=== PATIENT | female | born 1995 | race Caucasian/White ===

== ENCOUNTER → 2017-02-02 | Outpatient (REF) | payer OTHER | LOC: M SFHCCAPE 13:35 | PROVIDERS: ATTEND Physician Assistant | DX: J02.9 Acute pharyngitis, unspecified (principal) ==

== ENCOUNTER → 2018-01-23 | Outpatient (CLI) | payer BC, OTHER, SELFPAY | LOC: M RAD 10:34 | DX: O30.009 Twin pregnancy, unspecified number of placenta and unspecified number of amniotic sacs, unspecified trimester (principal); Z3A.13 13 weeks gestation of pregnancy | CPT/HCPCS: 76801 ==

== ENCOUNTER → 2018-01-25 | Outpatient (CLI) | payer BC, OTHER ==
[2018-01-25 19:39] LABS: BASO % 0.2 % (0.0-1.0); EOS # 0.1 10^3/uL (0.0-0.50); EOS % 0.4 % (0.0-3.0); HEMATOCRIT 40.2 % (36.0-47.0); HEMOGLOBIN 13.2 g/dl (12.0-15.5); IMMATURE GRANULOCYTE % 0.4 % (0-3.0); LYMPH % 12.1 % (24.0-44.0); MEAN CORPUSCULAR HEMOGLOBIN 27.9 pg (27.0-33.0); MEAN CORPUSCULAR HGB CONC 32.8 g/dl (32.0-36.5); MONO # 0.9 10^3/uL (0.0-0.8); MONO % 5.5 % (0.0-5.0); NEUTROPHILS # 13.2 10^3/uL (1.8-7.7); NEUTROPHILS % 81.4 % (36.0-66.0); PLATELET COUNT, AUTOMATED 314 10^3/uL (150-450); RED BLOOD COUNT 4.73 10^6/uL (4.00-5.40); RED CELL DISTRIBUTION WIDTH 15.4 % (11.5-14.5); WHITE BLOOD COUNT 16.2 10^3/uL (4.0-10.0)
[2018-01-25 21:25] LABS: CHLAMYDIA DNA AMPLIFICATION POSITIVE (NEGATIVE); GC DNA AMPLIFICATION NEGATIVE (NEGATIVE)
[2018-01-27 10:24] LABS: HBsAg Prenatal NEGATIVE (NEGATIVE); HIV 1&2 SCREEN CENTAUR NEGATIVE (NEGATIVE); RUBELLA IgG QUALITATIVE IMMUNE (IMMUNE)
[2018-01-27 10:24] LABS: HEPATITIS C VIRUS ABY INDEX 0.1 INDEX (<0.8)
== END ==
LOC: M WUC 16:16
DX: O30.009 Twin pregnancy, unspecified number of placenta and unspecified number of amniotic sacs, unspecified trimester (principal); Z3A.01 Less than 8 weeks gestation of pregnancy
CPT/HCPCS: 86762

== ENCOUNTER 2018-02-20 18:52 | Emergency (ER) | payer BC, OTHER ==
[2018-02-20] MEDS: NS 1,000 ML IV (19:15)
[2018-02-20 20:07] LABS: BASO % 0.1 % (0.0-1.0); EOS % 0.1 % (0.0-3.0); HEMATOCRIT 37.1 % (36.0-47.0); HEMOGLOBIN 12.7 g/dl (12.0-15.5); IMMATURE GRANULOCYTE % 0.5 % (0-3.0); LYMPH # 0.9 10^3/uL (1.5-6.5); MEAN CORPUSCULAR HEMOGLOBIN 29.1 pg (27.0-33.0); MEAN CORPUSCULAR HGB CONC 34.2 g/dl (32.0-36.5); MEAN CORPUSCULAR VOLUME 84.9 fl (80.0-96.0); MONO # 0.5 10^3/uL (0.0-0.8); MONO % 3.7 % (0.0-5.0); NEUTROPHILS # 13.2 10^3/uL (1.8-7.7); NEUTROPHILS % 89.6 % (36.0-66.0); PLATELET COUNT, AUTOMATED 290 10^3/uL (150-450); RED BLOOD COUNT 4.37 10^6/uL (4.00-5.40); RED CELL DISTRIBUTION WIDTH 15.2 % (11.5-14.5); WHITE BLOOD COUNT 14.7 10^3/uL (4.0-10.0)
[2018-02-20] MEDS: METOCLOPRAMIDE INJ 10MG/2ML VIAL (J2765) IV (20:09)
[2018-02-20 20:11] LABS: AMORPHOUS SEDIMENT RFX SMALL (NEGATIVE); KETONE, URINE AUTO RFX 2+ mg/dL (NEGATIVE); LEUKOCYTE ESTERASE UR AUTO RFX 1+ (NEGATIVE); MUCUS, URINE RFX MODERATE (NEGATIVE); NITRITE, URINE AUTO RFX NEGATIVE (NEGATIVE); RBC, URINE AUTO RFX 4 /HPF (0-3); SPECIFIC GRAVITY UR AUTO RFX 1.024 (1.002-1.035); SQUAM EPITHELIAL CELL UR AURFX 8 /HPF (0-6); WBC, URINE AUTO RFX 24 /HPF (0-3)
[2018-02-20 20:37] LABS: LACTIC ACID SEPSIS PROTOCOL 0.8 MMOL/L (0.4-2.0)
[2018-02-20 20:56] LABS: ALBUMIN 3.3 GM/DL (3.2-5.2); ALBUMIN/GLOBULIN RATIO 0.83 (1.00-1.93); ALKALINE PHOSPHATASE 56 U/L (45-117); ALT/SGPT 11 U/L (12-78); ANION GAP 9 MEQ/L (8-16); AST/SGOT 13 U/L (7-37); BILIRUBIN,DIRECT < 0.1 MG/DL (0.0-0.2); BILIRUBIN,TOTAL 0.3 MG/DL (0.2-1.0); BLOOD UREA NITROGEN 6 MG/DL (7-18); CALCIUM LEVEL 8.7 MG/DL (8.5-10.1); CARBON DIOXIDE LEVEL 24 MEQ/L (21-32); CHLORIDE LEVEL 104 MEQ/L (98-107); CREATININE FOR GFR 0.52 MG/DL (0.55-1.30); GLOMERULAR FILTRATION RATE > 60.0 (>60); GLUCOSE, FASTING 82 MG/DL (70-100); HCG, SERUM QUANTITATIVE 23171 MIU/ML; LIPASE 169 U/L (73-393); POTASSIUM SERUM 3.7 MEQ/L (3.5-5.1); SODIUM LEVEL 137 MEQ/L (136-145); TOTAL PROTEIN 7.3 GM/DL (6.4-8.2)
== END 2018-02-20 21:48 | disposition home or self-care (01) ==
LOC: M ED 18:52
DX: O21.0 Mild hyperemesis gravidarum (principal); O23.32 Infections of other parts of urinary tract in pregnancy, second trimester; Z3A.16 16 weeks gestation of pregnancy
CPT/HCPCS: J2765

== ENCOUNTER → 2018-03-02 | Outpatient (CLI) | payer BC, OTHER ==
[~2018-03-02] MED LIST: MACR100C43 PO; PRENMIS3 PO; PROM12.56 PO; ZOFR4TAB14 PO
--- NOTE | 2018-03-03 03:26 | REP ---
Clinical: Anatomical evaluation twin gestation . Comparison: 01/23/2018 . Findings: Examination demonstrates diamniotic twin gestation. Cervix measures 3.1 cm in length and appears closed. Concordant growth is noted. Gestational age by LMP at 18 weeks 0 days with estimated date of delivery 08/03/2018 . TWIN A: Twin A identified in cephalic presentation along the maternal right side. Placenta is noted posterior and grade grade zero without evidence for placenta previa or abruption. motion is appreciated. Amniotic fluid volume is normal and the deepest pocket measures 3.9 cm. FHR equals 144 beats per minute. BPD 3.9 cm 17 weeks 6-day HC 14.8 cm 18 weeks 0 days AC 12.8 cm 18 weeks 2 days FL 2.9 cm 18 weeks 6-day HL 2.9 cm 19 weeks 3 days HC/AC ratio 1.16 Gestational age by current measurements: 18 weeks 4 days . Estimated weight 244 grams ( 60th percentile). Anatomical assessment demonstrates normal cranium, cord plexus, cavum, posterior fossa/cerebellum, face, lungs, four-chamber heart/ventricular outflow tracts, diaphragm, stomach, cord insertion and three-vessel cord, kidneys/bladder, spine and extremities. ------- TWIN B: Twin B identified in breech presentation along the maternal left side. Placenta is noted posterior and grade grade zero without evidence for placenta previa or abruption. motion is appreciated. Amniotic fluid volume is normal and the deepest pocket measures 3.6 cm. FHR equals 132 beats per minute. BPD 4.1 cm 18 weeks 2 days HC 14.7 cm 17 weeks 6 days AC 13.1 cm 18 weeks 4 days FL 2.7 cm 18 weeks 1 day HL 2.7 cm 18 weeks 5 days HC/AC ratio 1.13 Gestational age by current measurements: 18 weeks 1 day . Estimated weight 236 grams ( 61st percentile). Anatomical assessment demonstrates normal cranium, cord plexus, cavum, posterior fossa/cerebellum, lungs, diaphragm, stomach, cord insertion and three-vessel cord, kidneys/bladder, spine and extremities. Impression: Diamniotic twin gestation demonstrating appropriate concordant growth. No gross abnormalities are identified. Anatomical assessment for twin A is complete and normal. Anatomical assessment for twin B limited in evaluation of the facial features and heart/ventricular outflow tracts. Electronically Signed by John Toth MD 03/03/2018 03:17 A
== END ==
LOC: M RAD 15:41
PROVIDERS: ATTEND Advanced Practice Midwife
DX: O30.001 Twin pregnancy, unspecified number of placenta and unspecified number of amniotic sacs, first trimester (principal); Z3A.18 18 weeks gestation of pregnancy

== ENCOUNTER → 2018-03-09 | Outpatient (REF) | payer BC, OTHER ==
[2018-03-09 18:57] LABS: CHLAMYDIA DNA AMPLIFICATION NEGATIVE (NEGATIVE); GC DNA AMPLIFICATION NEGATIVE (NEGATIVE)
== END ==
LOC: M LAB REF 16:37
PROVIDERS: ATTEND Obstetrics & Gynecology
DX: O30.002 Twin pregnancy, unspecified number of placenta and unspecified number of amniotic sacs, second trimester (principal)

== ENCOUNTER → 2018-03-22 | Outpatient (REF) | payer OTHER | LOC: M LAB REF 13:07 | PROVIDERS: ATTEND Obstetrics & Gynecology | DX: O30.032 Twin pregnancy, monochorionic/diamniotic, second trimester (principal) ==

== ENCOUNTER → 2018-03-30 | Outpatient (CLI) | payer BC, OTHER ==
--- NOTE | 2018-03-31 02:57 | REP ---
Clinical: Twin gestation. Follow-up Comparison: 03/02/2018 . Findings: Examination demonstrates diamniotic monochorionic twin gestation. Cervix measures 3.8 cm cm in length and appears closed. Placenta is posterior and grade zero without evidence for placenta previa or abruption. Concordant growth is noted. Gestational age by LMP at 22 weeks 0 days with estimated date of delivery 08/03/2018 . TWIN A: Twin A identified in cephalic presentation along the maternal midline side. motion is appreciated. Amniotic fluid volume is normal and the deepest pocket measures 4.4 cm. FHR equals 150 beats per minute. Estimated weight 512 grams ( 63rd percentile). Limited anatomical assessment demonstrates normal structures without anatomical abnormality. Current examination poorly evaluates heart/ventricular outflow tracts to prior examination demonstrated normal appearance. ------- TWIN B: Twin B identified in breech presentation along the maternal right side. motion is appreciated. Amniotic fluid volume is normal and the deepest pocket measures 4.7 cm. FHR equals 141 beats per minute. Estimated weight 511 grams ( 63rd percentile). Limited anatomical assessment demonstrates normal structures with the exception of the heart and ventricular outflow tracts which are again incompletely evaluated due to positioning. Impression: Diamniotic monochorionic twin gestation demonstrating appropriate concordant growth. No gross abnormalities are identified. However, limited evaluation of the twin B cardiac ventricular outflow tracts again noted. Electronically Signed by John Toth MD 03/31/2018 02:48 A
== END ==
LOC: M RAD 17:01
PROVIDERS: ATTEND Obstetrics & Gynecology
DX: O30.032 Twin pregnancy, monochorionic/diamniotic, second trimester (principal); Z3A.22 22 weeks gestation of pregnancy; O32.1XX2 Maternal care for breech presentation, fetus 2

== ENCOUNTER 2018-04-18 16:23 | Outpatient (CLI) | payer BC, OTHER ==
[~2018-04-18] VITALS: Ht 162.6 cm; Wt 106.8 kg
[2018-04-18 17:00] VITALS: BP 122/75
--- NOTE | 2018-04-18 19:57 | NUR ---
PERIPHERAL VASCULAR TECH triage note 22-year-old G1, P0 at 24+5 weeks gestation. She has a mono/di twin gestation. She presented to labor and delivery triage after experiencing a slip and fall. She's had some mild lower abdominal pain, which preceded the fall. She denies any vaginal bleeding, loss of fluid. She reports regular movement of both twins. Normotensive, normal heart rate, afebrile Abdomen soft, nontender, nondistended, uterine fundus, nontender EFM: Reactive for EGA, moderate variability, no decelerations, and normal baseline for both twins [place]: No evidence of uterine contractions A/P 22-year-old at 24+5 weeks with mono/di twins. Reassuring status 2 and reassuring maternal status after a slip and fall incident low-impact. -Second trimester precautions reviewed -Patient has a follow-up appointment tomorrow. Delbert Kelley DO
== END 2018-04-18 19:54 | disposition home or self-care (01) ==
LOC: M LDO 16:23
PROVIDERS: ATTEND Obstetrics & Gynecology
DX: Z04.3 Encounter for examination and observation following other accident (principal); O30.032 Twin pregnancy, monochorionic/diamniotic, second trimester; O26.892 Other specified pregnancy related conditions, second trimester; R10.30 Lower abdominal pain, unspecified; Z3A.24 24 weeks gestation of pregnancy
CPT/HCPCS: 59025; G0378; G0463

== ENCOUNTER → 2018-05-01 | Outpatient (CLI) | payer BC, OTHER ==
--- NOTE | 2018-05-02 08:36 | REP ---
Clinical: Twin gestation. Anatomical reevaluation. Comparison: 03/30/2018 . Findings: Examination demonstrates diamniotic monochorionic twin gestation. Cervix measures 4.8 cm in length and appears closed. Concordant growth is noted. Gestational age by LMP at 26 weeks 4 days with estimated date of delivery 08/03/2018 . TWIN A: Twin A identified in cephalic presentation along the maternal left side. Placenta is noted posterior and grade grade 1 without evidence for placenta previa or abruption. motion is appreciated. Amniotic fluid volume is normal and the deepest pocket measures 1.82 cm. FHR equals 150 beats per minute. Gestational age by current measurements: 26 weeks 1 day . Estimated weight 855 grams ( 23rd percentile). Limited anatomical assessment without obvious abnormality. ------- TWIN B: Twin B identified in cephalic presentation along the maternal right side. Placenta is noted posterior and grade grade 1 without evidence for placenta previa or abruption. motion is appreciated. Amniotic fluid volume is normal and the deepest pocket measures 2.43 cm. FHR equals 150 beats per minute. Gestational age by current measurements: 26 weeks 3 days . Estimated weight 948 grams ( 40th percentile). Limited anatomical assessment without obvious abnormality. Current examination demonstrates normal appearing cardiac ventricular outflow tracts. Impression: 1. Diamniotic monochorionic twin gestation demonstrating appropriate concordant growth. No gross abnormalities are identified. 2. Previous incomplete evaluation of the twin B cardiac ventricular outflow tracts are identified on current examination and appear normal. Electronically Signed by John Toth MD 05/02/2018 08:27 A
== END ==
LOC: M RAD 15:13
PROVIDERS: ATTEND Specialist
DX: O30.032 Twin pregnancy, monochorionic/diamniotic, second trimester (principal); Z3A.26 26 weeks gestation of pregnancy

== ENCOUNTER → 2018-05-04 | Outpatient (CLI) | payer BC, OTHER ==
[2018-05-04 16:04] LABS: BASO % 0.2 % (0.0-1.0); EOS % 0.2 % (0.0-3.0); HEMATOCRIT 33.8 % (36.0-47.0); HEMOGLOBIN 11.4 g/dl (12.0-15.5); LYMPH # 1.3 10^3/uL (1.5-6.5); LYMPH % 7.5 % (24.0-44.0); MEAN CORPUSCULAR HEMOGLOBIN 30.6 pg (27.0-33.0); MEAN CORPUSCULAR HGB CONC 33.7 g/dl (32.0-36.5); MEAN CORPUSCULAR VOLUME 90.6 fl (80.0-96.0); MONO # 0.8 10^3/uL (0.0-0.8); MONO % 4.6 % (0.0-5.0); NEUTROPHILS # 15.4 10^3/uL (1.8-7.7); NEUTROPHILS % 86.8 % (36.0-66.0); PLATELET COUNT, AUTOMATED 285 10^3/uL (150-450); RED BLOOD COUNT 3.73 10^6/uL (4.00-5.40); WHITE BLOOD COUNT 17.7 10^3/uL (4.0-10.0)
== END ==
LOC: M LAB 14:25
PROVIDERS: ATTEND Specialist
DX: O30.032 Twin pregnancy, monochorionic/diamniotic, second trimester (principal)

== ENCOUNTER → 2018-05-24 | Outpatient (CLI) | payer BC, OTHER ==
--- NOTE | 2018-05-24 18:15 | REP ---
Clinical: Twin gestation. Anatomical evaluation Comparison: 05/01/2018 . Findings: Examination demonstrates diamniotic monochorionic twin gestation. Cervix measures 4.5 cm cm in length and appears closed. Concordant growth is noted. Gestational age by LMP at 29 weeks 6 days with estimated date of delivery 08/03/2018 . TWIN A: Twin A identified in cephalic presentation along the maternal midline side. Placenta is noted the posterior and grade II without evidence for placenta previa or abruption. motion is appreciated. Amniotic fluid volume is normal and the deepest pocket measures 5.6 cm. FHR equals 150 beats per minute. The Gestational age by current measurements: 29 weeks 5 days . Estimated weight 1356 grams ( 27th percentile). Limited anatomical assessment unremarkable. ------- TWIN B: Twin B identified in breech presentation along the maternal right side. Placenta is noted posterior and grade II without evidence for placenta previa or abruption. motion is appreciated. Amniotic fluid volume is normal and the deepest pocket measures 5.4 cm. FHR equals 160 beats per minute. Gestational age by current measurements: 30 weeks 5 days . Estimated weight 1773 grams ( 78th percentile). Limited anatomical assessment without obvious abnormality. Impression: Diamniotic monochorionic twin gestation demonstrating 24% discordant growth. No gross abnormalities are identified. Electronically Signed by John Toth MD 05/24/2018 06:07 P
== END ==
LOC: M RAD 15:52
PROVIDERS: ATTEND Specialist
DX: O30.033 Twin pregnancy, monochorionic/diamniotic, third trimester (principal); Z3A.29 29 weeks gestation of pregnancy; Z3A.30 30 weeks gestation of pregnancy

== ENCOUNTER → 2018-06-02 | Outpatient (CLI) | payer BC, OTHER ==
--- NOTE | 2018-06-02 19:16 | REP ---
LIMITED OB ULTRASOUND AND BIOPHYSICAL PROFILE TWIN GESTATION: Real-time sonographic evaluation of gravid uterus performed. There is a known diamniotic monochorionic twin gestation. Placenta posterior and grade 2 with no previa or abruption. Estimated gestational age 31 weeks 1 day, EDC 08/03/2018. FETUS A: heart rate 147 beats per minute. Amniotic fluid appears within normal limits, with deepest pocket of fluid 3.4 cm. Biophysical profile score 8/8. S/D ratio 3.01 and RI 0.67, within normal range. position is vertex on the maternal left side. FETUS B: heart rate 144 beats per minute. Amniotic fluid within normal limits with deepest pocket of fluid 3.1 cm. Biophysical profile score 8/8. position vertex on the maternal right side. Electronically Signed by Naman Mojica MD 06/02/2018 08:04 P
== END ==
LOC: M SMT 13:17
PROVIDERS: ATTEND Specialist
DX: O30.033 Twin pregnancy, monochorionic/diamniotic, third trimester (principal); Z3A.31 31 weeks gestation of pregnancy

== ENCOUNTER 2018-06-08 20:04 | Outpatient (CLI) | payer BC, OTHER, MEDICAID ==
[~2018-06-08] VITALS: Ht 165.1 cm; Wt 105.9 kg
[~2018-06-08 20:04] MED LIST changes: -ZOFR4TAB16 PO
[2018-06-08 20:44] VITALS: BP 134/78
[2018-06-08 20:58] VITALS: BP 137/75
[2018-06-08] MEDS: BETAMETHASONE SOLUSPAN 6MG/ML INJ 5ML (J0702) IM SCH (21:15)
[2018-06-08] MEDS ORDERED: LACTATED RINGER'S 1000 ML IV STA (21:16)
[2018-06-08] MEDS ORDERED: LR 1,000 ML IV SCH (21:16)
[2018-06-08 22:10] VITALS: BP 139/92
[2018-06-08 23:14] VITALS: BP 115/68
[2018-06-09] VITALS (7 sets, daily range): BP systolic 134–147; BP diastolic 66–92
[2018-06-09] MEDS: ONDANSETRON 4MG/2ML VIAL (J2405) IV PRN ×3 (08:07→17:12)
--- NOTE | 2018-06-09 08:38 | HPE ---
DATE OF ADMISSION: 06/08/2018 HISTORY: 22-year-old G1, P0 female at 32 and 0/7s gestation by 7-week ultrasound with an estimated date of confinement (EDC) of 08/03/2018 with monochorionic, diamniotic twins, presents with cramping and contractions for the last several hours. Denies vaginal bleeding. Contractions are not severe. Every two hours then occur frequently and she notices them. She had an ultrasound for growth early in the day which shows a lag of growth of both twins with intrauterine growth restriction (IUGR) of twin A. There is also oligohydramnios of twin A and overall discordant. COURSE: The patient received care at 8 weeks gestation on 12/16/2017. First trimester blood pressure was 122/70. She was diagnosed with monochorionic, diamniotic twins at an early visit. She had a positive chlamydia culture early in that was treated successfully. Studies showed discordance of growth ultrasound at 29+ weeks gestation. She had mildly elevated blood pressure most recent visit. PAST MEDICAL HISTORY: Noncontributory. PAST SURGICAL HISTORY: None. ALLERGIES: None. SOCIAL HISTORY: Patient lives in [place]. She denies cigarettes, alcohol or drug use. FAMILY HISTORY: Noncontributory. PHYSICAL EXAMINATION: Vital Signs: Blood pressure 134/76, pulse 84. She is in no apparent distress. Head and neck exam normal. Lungs clear to auscultation. Heart regular rate and rhythm. ABDOMEN: Nontender. Gravid. heart tones. Category 1 times two contractions every 2-4 minutes, mild to palpation. Cervix is long, closed. Posterior speculum exam reveals no evidence of ruptured membranes. Extremities: Nontender. LABS: Blood type A positive, rubella immune, RPR nonreactive. Hepatitis B and C negative, HIV negative. ASSESSMENT: 22-year-old at G1 at 32 and 0/7s weeks gestation by 7-week ultrasound, monochorionic, diamniotic twins presents with IUGR of twin A as well as overall less than expected growth of both twins and oligohydramnios of twin A. She has contractions with no evidence of labor. PLAN: Admit for monitoring and IV fluids. Will administer first course or betamethasone tonight for lung maturity. Plan to observe patient overnight.
--- NOTE | 2018-06-09 10:10 | IPNPDOC ---
Text Note Date of Service The patient was seen on 06/09/18. NOTE Pt has been out of bed to shower. Returned to bed complaining of increased UC, breathing heavily. Denies bleeding or LOF SVE soft, closed, posterior, no presenting part in pelvis Will resume hydration and reassess NST's pending VS,Fishbone, I+O VS, Fishbone, I+O Vital Signs Date Time Temp Pulse Resp B/P (MAP) Pulse Ox O2 Delivery O2 Flow Rate FiO2 06/09/18 07:11 98.9 110 16 141/66 (91) Emperatriz Crews CNM Jun 09, 2018 10:10
[2018-06-09] MEDS: BETAMETHASONE SOLUSPAN 6MG/ML INJ 5ML (J0702) IM SCH (19:17)
--- NOTE | 2018-06-09 19:20 | IPNPDOC ---
Text Note Date of Service The patient was seen on 06/09/18. NOTE Pt is reassured by status and plan for section 06/22. She verbalized understanding of f/u appt with Dr Mendosa Tuesday and repeat BPP this next week. Cat I tracings x2 without reports of UC, nothing on monitor Betamethasone injection #2 given Discharged home. Rec rest and increased hydration After hours access, PTL, daily FKC, wanrings reviewed VS,Fishbone, I+O VS, Fishbone, I+O Vital Signs Date Time Temp Pulse Resp B/P (MAP) Pulse Ox O2 Delivery O2 Flow Rate FiO2 06/09/18 15:00 99.0 118 18 147/81 (103) Emperatriz Crews CNM Jun 09, 2018 19:20
[2018-06-14] MEDS ORDERED: ZOFR4TAB16 PO (11:52)
== END 2018-06-09 19:36 | disposition home or self-care (01) ==
LOC: M LDO 20:04
PROVIDERS: ATTEND Specialist
DX: O30.033 Twin pregnancy, monochorionic/diamniotic, third trimester (principal); O26.843 Uterine size-date discrepancy, third trimester; O26.893 Other specified pregnancy related conditions, third trimester; R10.30 Lower abdominal pain, unspecified; O41.03X1 Oligohydramnios, third trimester, fetus 1; O47.03 False labor before 37 completed weeks of gestation, third trimester; Z3A.32 32 weeks gestation of pregnancy
CPT/HCPCS: 59025; 96360; 96361; 96372; 96374; G0378; G0463; J0702; J2405

== ENCOUNTER → 2018-06-08 | Outpatient (CLI) | payer BC, OTHER ==
[~2018-06-08] MED LIST changes: +ZOFR4TAB16 PO
[2018-06-08 18:23] LABS: ALT/SGPT 10 U/L (12-78); BILIRUBIN,TOTAL 0.4 MG/DL (0.2-1.0); CREATININE FOR GFR 0.61 MG/DL (0.55-1.30); GLOMERULAR FILTRATION RATE > 60.0 (>60); LDH LACTATE DEHYDROGENASE 219 U/L (84-246); URIC ACID 4.2 MG/DL (2.6-6.0)
[2018-06-08 18:32] LABS: TOTAL PROTEIN,RANDOM URINE 32.2 MG/DL (0.0-12.0)
[2018-06-08 19:07] LABS: HEMOGLOBIN 11.8 g/dl (12.0-15.5); MEAN CORPUSCULAR HEMOGLOBIN 28.2 pg (27.0-33.0); MEAN CORPUSCULAR HGB CONC 31.9 g/dl (32.0-36.5); MEAN CORPUSCULAR VOLUME 88.5 fl (80.0-96.0); PLATELET COUNT, AUTOMATED 299 10^3/uL (150-450); RED BLOOD COUNT 4.18 10^6/uL (4.00-5.40); WHITE BLOOD COUNT 21.8 10^3/uL (4.0-10.0)
== END ==
LOC: M SMT 15:26
PROVIDERS: ATTEND Obstetrics & Gynecology
DX: O16.3 Unspecified maternal hypertension, third trimester (principal); Z3A.00 Weeks of gestation of pregnancy not specified

== ENCOUNTER → 2018-06-08 | Outpatient (CLI) | payer MEDICAID ==
--- NOTE | 2018-06-08 20:23 | REP ---
Clinical: Twin gestation. well-being Comparison: 06/02/2018 . Findings: Examination demonstrates diamniotic monochorionic twin gestation. Cervix measures 3.2 cm in length and appears closed. Gestational age by LMP at 32 weeks 0 days with estimated date of delivery 08/03/2018 . TWIN A: Twin A identified in cephalic presentation along the maternal left side. Placenta is noted fundal and grade II without evidence for placenta previa or abruption. motion is appreciated. Amniotic fluid volume is significantly decreased and the deepest pocket measures 2.5 cm. FHR equals 153 beats per minute. BPD 7.7 cm 30 weeks 6 days HC 29.5 cm 32 weeks 4 days AC 25.6 cm 29 weeks 6 days (5%) FL 5.7 cm 30 weeks 0 days (7%) HL 5.3 cm 31 weeks 0 days HC/AC ratio 1.15 Gestational age by current measurements: 30 weeks 6 days . Estimated weight 1532 grams ( 9th percentile). Biophysical profile score: 8/8 Umbilical cord SD ratio : 3.00 ------- TWIN B: Twin B identified in transverse (head to maternal left) presentation along the maternal right side. Placenta is noted fundal and grade II without evidence for placenta previa or abruption. motion is appreciated. Amniotic fluid volume is normal and the deepest pocket measures 4.6 cm. FHR equals 157 beats per minute. BPD 7.0 cm 28 weeks 1 day (<5%) HC 27.6 cm 30 weeks 1 day AC 28.6 cm 32 weeks 4 days FL 6.0 cm 31 weeks 2 days HL 5.6 cm 32 weeks 3 days HC/AC ratio 0.97 Gestational age by current measurements: 31 weeks 0 days . Estimated weight 1791 grams ( 34th percentile). Biophysical profile score: 8/8 Umbilical cord SD ratio: 2.92 Impression: Diamniotic monochorionic twin gestation demonstrating less than expected discordant growth. Details as described above. Electronically Signed by John Toth MD 06/08/2018 08:14 P
== END ==
LOC: M RAD 16:00
PROVIDERS: ATTEND Specialist
DX: O30.033 Twin pregnancy, monochorionic/diamniotic, third trimester (principal); Z3A.30 30 weeks gestation of pregnancy

== ENCOUNTER → 2018-06-15 | Outpatient (CLI) | payer BC, OTHER, MEDICAID ==
[~2018-06-15] MED LIST changes: +ZOFR4TAB16 PO
--- NOTE | 2018-06-15 18:04 | REP ---
Clinical: Twin gestation. well-being. Comparison: 06/08/2018. Findings: Examination demonstrates advanced diamniotic monochorionic twin gestation. Cervix appears closed. Placenta is fundal and grade III without evidence for placenta previa or abruption. Gestational age by LMP at 33 weeks 0 days with estimated date of delivery 08/03/2018 . TWIN A: Twin A identified in cephalic presentation along the maternal left side. Placenta is noted fundal and grade III without evidence for placenta previa or abruption. motion is appreciated. Amniotic fluid volume is normal and the deepest pocket measures 4.5 cm. FHR equals 150 beats per minute. BPP: 8/8 Umbilical Doppler SD ratio: 2.92 ------- TWIN B: Twin B identified in transverse (head to maternal right) presentation along the maternal midline / left side. Placenta is noted fundal and grade III without evidence for placenta previa or abruption. motion is appreciated. Amniotic fluid volume is normal and the deepest pocket measures 4.0 cm. FHR equals 150 beats per minute. BPP: 8/8 Umbilical Doppler SD ratio: 3.04 Impression: 1. Diamniotic monochorionic twin gestation demonstrating normal biophysical profile scores and amniotic fluid volumes. 2. Twin B SD ratio mildly elevated. Electronically Signed by John Toth MD 06/15/2018 05:55 P
== END ==
LOC: M RAD 16:39
PROVIDERS: ATTEND Specialist
DX: O30.033 Twin pregnancy, monochorionic/diamniotic, third trimester (principal); Z3A.33 33 weeks gestation of pregnancy; O32.2XX0 Maternal care for transverse and oblique lie, not applicable or unspecified

== ENCOUNTER 2018-06-22 07:46 | Inpatient (IN) | payer MEDICAID ==
[2018-06-22] VITALS (8 sets, daily range): BP systolic 106–133; BP diastolic 58–87
[~2018-06-22] VITALS: Ht 165.1 cm; Wt 104.5 kg
[2018-06-22] MEDS ORDERED: LR 1,000 ML IV ONE (08:15)
[2018-06-22] MEDS ORDERED: BICITRA 30ML SOLN UDC PO ONE (08:15)
[2018-06-22] MEDS ORDERED: LR 1,000 ML IV SCH (08:15)
[2018-06-22 08:54] LABS: HEMATOCRIT 36.1 % (36.0-47.0); MEAN CORPUSCULAR HGB CONC 33.2 g/dl (32.0-36.5); MEAN CORPUSCULAR VOLUME 84.1 fl (80.0-96.0); PLATELET COUNT, AUTOMATED 308 10^3/uL (150-450); RED BLOOD COUNT 4.29 10^6/uL (4.00-5.40); WHITE BLOOD COUNT 21.5 10^3/uL (4.0-10.0)
[2018-06-22] MEDS: PRENATAL VITAMINS CHEWABLE TABLET PO SCH (09:00)
[2018-06-22] MEDS: DOCUSATE SODIUM 100 MG CAP PO SCH ×2 (09:00→20:48)
[2018-06-22] MEDS ORDERED: OXYTOCIN INJ 10 UNITS/ML VIAL (J2590) As Ordered ONE (09:34)
[2018-06-22] MEDS ORDERED: BUPIVACAINE/DEXTROSE 0.75% 2 ML AMP As Ordered ONE (09:34)
[2018-06-22] MEDS ORDERED: MORPHINE PRES-FREE INJ 10 MG/10 ML VIAL (J2274) As Ordered ONE (09:34)
[2018-06-22] MEDS ORDERED: ONDANSETRON 4MG/2ML VIAL (J2405) As Ordered ONE (09:34)
[2018-06-22] MEDS ORDERED: dexameTHASONE 4 MG/ML 1ML VIAL (J1100) As Ordered ONE (09:34)
[2018-06-22] MEDS ORDERED: MIDAZOLAM INJ 2 MG/2 ML VIAL (J2250) As Ordered ONE (10:11)
[2018-06-22] MEDS ORDERED: PROPOFOL 200 MG/20 ML VIAL As Ordered ONE (10:43)
[2018-06-22] MEDS ORDERED: OXYTOCIN 30 UNITS IN 0.9% NaCl 500ML IV BAG (J2590) As Ordered ONE (10:57)
[2018-06-22] MEDS ORDERED: MEASLES,MUMPS,RUBELLA VACCINE INJ (MMR-II) (90707) SC SCH (11:15)
[2018-06-22] MEDS ORDERED: PROMETHAZINE 25 MG TAB PO PRN (11:15)
[2018-06-22] MEDS ORDERED: ONDANSETRON 4MG/2ML VIAL (J2405) IV PRN ×3 (11:15→13:30)
[2018-06-22] MEDS ORDERED: RHOGAM 300 MCG (1500 IU) INJ (J2790) IM SCH (11:15)
--- NOTE | 2018-06-22 11:22 | NUR ---
Operative Note Date of procedure: 06/22/2018 Procedure:, Primary low-transverse section Anesthesia: Spinal with Duramorph Preoperative diagnosis: 34+ weeks gestation, monochorionic diamniotic twin gestation growth restriction of twin A, significant growth discordance with twin B malpresentation of twin B Postoperative diagnosis: Same as preoperative diagnosis Indication: malpresentation of twin B Primary surgeon: Chilango Kelley D.O., FDiony Hodges Embossing Machine Operator: Oliver Choudhury MD FACOG (essential for surgical site exposure and assisting with delivery through hysterotomy) Estimated blood loss: 600 ml IV fluids administered: 1200 ml crystalloid Drains: Jc catheter. Urine output: 75 ml [place] data: Twin A: Apgars 3,7, BW 3lbs 13oz, 1740g. Female. Twin B: Apgars 7,8, BW 4lbs 7oz, 2012g. Female. Preoperative/prophylactic antibiotics: Ancef 2 g IV (given within 30 minutes prior to surgical start time). Intraoperative findings: cephalic, breech presentation. Normal uterus and bilateral adnexa. Specimen(s): monochorionic/diamniotic placenta Procedure: The patient was counseled and consented on the risks, benefits, indications and alternatives of the procedure. Informed consent was obtained and placed in the c acevedo. She was taken to the operating room with an IV running. She was placed on the operating table. Spinal anesthesia was administered without any difficulty and found to be adequate. She was placed in the dorsal supine position with a leftward tilt. Sequential compression devices were placed on the lower extremities. A Jc catheter was placed under sterile conditions. She was sterilely prepped and draped. A surgical timeout was performed per protocol. Spinal anesthesia was again found to be adequate. Using the 10 blade a Pfannenstiel incision was performed. The 10 blade was used to dissect down to the level of the rectus sheath fascia. The rectus sheath fas dahlia was incised at the midline, and the fascial incision was extended with Cowart scissors. Alice clamps were used to grasp the superior and inferior aspect of the fascial incision and the rectus muscle bellies were dissected off sharply and bluntly. The midline was identified and the rectus muscle bellies were manually . The peritoneum was identified and clamped with hemostats and elevated. The peritoneum was then incised with Metzenbaum scissors. Entry into the intraperitoneal cavity was achieved. The peritoneal opening was extended with manual stretch . There was good visualization of both the bladder and the lower uterine segment. The Mobius retractor was placed. The vesicouterine peritoneum was dissected with Metzenbaum scissors and blunt dissection. A low transverse uterine incision was made with a new 10 blade. The hysterotomy was extended with manual stretch. The amniotic sac of Twin A was protruding and then artificially ruptured. Clear amniotic fluid was noted. The baby's head delivered through the hysterotomy with ease. The remainder of the body delivered with ease. The cord was doubly clamped and cut and the baby was handed off to awaiting care. The amniotic sac of Twin B was artificially ruptured, clear fluid was noted. The breech was brought to the level of the hysterotomy and classic breech maneuvers were performed to delivery Twin B without any difficulty. See data above. The placenta was manually removed and noted to be fully intact. The uterus was kept in situ The intrauterine cavity was cleared of all clot and debris with a laparotomy sponge. The hysterotomy was closed with 0 Vicryl in running, locked fashion. A second imbricating closure was performed over the initial layer closure using 0 Vicryl. The hysterotomy was noted to be hemostatic. The posteri or cul-de-sac was irrigated and cleared of all clot and debris. The uterus was replaced back into the abdomen. The paracolic gutters were cleared of all clot and debris with damp laparotomy sponges. The hysterotomy is reinspected and noted to be hemostatic. Sponge, needle and instrument counts were correct. The peritoneum was closed with 3-0 Vicryl in running fashion. The rectus muscle bellies were reapproximated with 3-0 Vicryl with a series of interrupted sutures. The rectus muscle bellies were noted to be hemostatic. The fascia was closed with 0 Vicryl in running fashion. Sponge, needle and instrument counts were again correct. The subcutaneous layer was irrigated. Small subcutaneous bleeders were cauterized with Bovie. The subcutaneous layer was reapproximated with 3-0 Vicryl in running fashion. The skin was closed with 3-0 Monocryl in subcuticular fashion. A bandage was placed over the closed incision. The final sponge, instrument and needle count was correct. She tolerated the entire procedure very well. She was transferred to the PACU in good and stable condition. Dr. Chilango Kelley D.O., F.A.C.Wei.G
[2018-06-22] MEDS: LR 1,000 ML IV SCH ×2 (11:30→20:48)
[2018-06-22] MEDS ORDERED: OXYTOCIN DRIP 30 UNITS in APPROPRIATE DILUENT 1 EA IV SCH (11:30)
[2018-06-22] MEDS ORDERED: NALBUPHINE HCL 10 MG/ML AMP (J2300) IV PRN ×2 (11:45→13:30)
[2018-06-22] MEDS ORDERED: KETOROLAC 30 MG/ML VIAL (J1885) As Ordered ONE (12:10)
[2018-06-22] MEDS: KETOROLAC 30 MG/ML VIAL (J1885) IV SCH ×3 (12:11→23:46)
[2018-06-22] MEDS ORDERED: fentaNYL 100 MCG/2 ML INJECTION (J3010) IV PRN (12:15)
[2018-06-22] MEDS ORDERED: diphenhydrAMINE INJ 50MG/ML VIAL (J1200) IV PRN (13:30)
[2018-06-22] MEDS ORDERED: METOCLOPRAMIDE INJ 10MG/2ML VIAL (J2765) IV PRN (13:30)
[2018-06-22] MEDS ORDERED: NALOXONE INJ 0.4 MG/1 ML VIAL (J2310) IV PRN ×2 (13:30)
[2018-06-23 02:00] VITALS: BP 128/64
[2018-06-23] MEDS: KETOROLAC 30 MG/ML VIAL (J1885) IV SCH (05:32)
[2018-06-23 06:02] VITALS: BP 112/68
--- NOTE | 2018-06-23 07:00 | NUR ---
POD#1 s/p PLTCS at 34 weeks for mono/di twins (FGR/growth discrepancy) S: Pain well controlled, ambulating without difficulty, voiding spontaneously, lochia decreasing/minimal, tolerating PO. Plans on breast feeding. Babies are doing well in NICU O: VSS, normotensive, normal HR, afebrile H: RRR no m/g/r L: CTA b/l no w/c/r/r Abd: soft,nt,nd, uterine fundus firm at U-2cm and appropriately tender Incision bandage not soaked through Ext: no c/c/e; SCD's on while in bed Preop h/h: 12.0/36.1 postop h/h: 10.2/30.5 A/P: POD#1. Recovering appropriately. HDS/afebrile/good pain control. -Routine postoperative/ care and advancement -Anticipate d/c home tomorrow. Delbert Kelley DO
[2018-06-23 07:28] LABS: HEMATOCRIT 30.5 % (36.0-47.0); HEMOGLOBIN 10.2 g/dl (12.0-15.5); MEAN CORPUSCULAR HEMOGLOBIN 28.3 pg (27.0-33.0); MEAN CORPUSCULAR HGB CONC 33.4 g/dl (32.0-36.5); MEAN CORPUSCULAR VOLUME 84.5 fl (80.0-96.0); PLATELET COUNT, AUTOMATED 291 10^3/uL (150-450); RED BLOOD COUNT 3.61 10^6/uL (4.00-5.40); WHITE BLOOD COUNT 20.5 10^3/uL (4.0-10.0)
[2018-06-23] MEDS ORDERED: OXYC1TAB23 PO (08:15)
[2018-06-23] MEDS ORDERED: IBUP80TA PO (08:16)
[2018-06-23] MEDS: DOCUSATE SODIUM 100 MG CAP PO SCH ×2 (09:12→21:36)
[2018-06-23] MEDS: PRENATAL VITAMINS CHEWABLE TABLET PO SCH (09:12)
[2018-06-23 09:58] VITALS: BP 126/69
[2018-06-23] MEDS ORDERED: INFLUENZA QUADRIVALENT PF VACCINE 0.5ML SYRINGE (90686) IM ONE (11:00)
[2018-06-23] MEDS: PERCOCET 5MG/325MG TAB PO PRN ×3 (12:27→23:19)
[2018-06-23] MEDS: IBUPROFEN 800 MG TAB PO SCH ×2 (14:11→21:36)
[2018-06-23 18:00] VITALS: BP 130/71
[2018-06-24 05:22] VITALS: BP 117/60
[2018-06-24] MEDS: IBUPROFEN 800 MG TAB PO SCH (05:24)
--- NOTE | 2018-06-24 06:59 | IPNPDOC ---
Text Note Date of Service The patient was seen on 06/24/18. NOTE PO #2 Feels well. Adequate pain management. Pumping. Voiding VSS, afebrile, normotensive Breasts soft, nipples intact Fundus firm NT Dressing intact with old drainage Lochia rubra scant without odor PO #2 Routine care. Anticipate D/C in am VS,Fishbone, I+O VS, Fishbone, I+O Vital Signs Date Time Temp Pulse Resp B/P (MAP) Pulse Ox O2 Delivery O2 Flow Rate FiO2 06/24/18 05:22 99.5 68 16 117/60 (79) 06/23/18 09:58 100 I&O- Last 24 Hours up to 6 AM 06/24/18 05:59 Output Total 251 ml Balance -251 ml Emperatriz Crews CNM Jun 24, 2018 06:58
[2018-06-24] MEDS ORDERED: INFLUENZA QUADRIVALENT PF VACCINE 0.5ML SYRINGE (90686) IM ONE (09:00)
[2018-06-24] MEDS: PRENATAL VITAMINS CHEWABLE TABLET PO SCH (09:37)
[2018-06-24] MEDS: PERCOCET 5MG/325MG TAB PO PRN (09:38)
[2018-06-24] MEDS: DOCUSATE SODIUM 100 MG CAP PO SCH (09:40)
--- NOTE | 2018-06-24 16:58 | DSES ---
DATE OF ADMISSION: 06/22/2018 DATE OF DISCHARGE: 06/24/2018 A 22-year-old G1 female at 34 weeks gestation with monochorionic diamniotic twins presents for primary section. Indications for early delivery of twins is discordant growth with growth restriction of one twin. HOSPITAL COURSE: On 06/22/2018 the patient underwent primary low transverse section for viable twins. Twin A was 3 pounds 13 ounces. Twin B was 4 pounds 7 ounces. The procedure was without complication. Her postoperative course was unremarkable. She had adequate return of bladder and bowel function. Both babies remained stable int he intensive care unit (NICU). Patient herself is deemed stable for discharge on postoperative day #2. ADMISSION DIAGNOSIS: , 34-week monochorionic diamniotic twins, growth discordance. DISCHARGE DIAGNOSIS: Delivered. PROCEDURE: Primary low transverse section. DISPOSITION: Patient to followup with [facility] in 2 weeks. Instructions were reviewed.
== END 2018-06-24 13:30 | disposition home or self-care (01) | DRG 540 ==
LOC: M LDI 07:46 → M OBS 12:39
PROVIDERS: ADMIT Obstetrics & Gynecology; ATTEND Obstetrics & Gynecology
PROC: 10D00Z1 Extraction of Products of Conception, Low, Open Approach (ICD-10-PCS; principal; 2018-06-22 09:30)
DX: O30.033 Twin pregnancy, monochorionic/diamniotic, third trimester (principal); O36.5930 Maternal care for other known or suspected poor fetal growth, third trimester, not applicable or unspecified; Z37.2 Twins, both liveborn; Z3A.34 34 weeks gestation of pregnancy

== ENCOUNTER 2020-06-10 16:07 | Emergency (ER) | payer BC, MEDICAID, OTHER, SELFPAY ==
[~2020-06-10] VITALS: Ht 160 cm; Wt 77.0 kg
[~2020-06-10 16:07] MED LIST changes: +IBUP80TA PO; +OXYC1TAB23 PO
[2020-06-10] MEDS ORDERED: ACETAMINOPHEN 325 MG TAB PO ONE (16:25)
[2020-06-10] MEDS ORDERED: KETOROLAC 30 MG/ML 1ML VIAL IV ONE (16:25)
[2020-06-10] MEDS ORDERED: ONDANSETRON 4MG/2ML VIAL IV ONE (16:25)
[2020-06-10] MEDS ORDERED: NS 1,000 ML IV ONE ×2 (16:25→19:45)
[2020-06-10 18:07] LABS: HEMATOCRIT 36.2 % (36.0-47.0); HEMOGLOBIN 11.9 g/dl (12.0-15.5); MEAN CORPUSCULAR HEMOGLOBIN 27.5 pg (27.0-33.0); MEAN CORPUSCULAR HGB CONC 32.9 g/dl (32.0-36.5); MEAN CORPUSCULAR VOLUME 83.6 fl (80.0-96.0); PLATELET COUNT, AUTOMATED 263 10^3/uL (150-450); RED BLOOD COUNT 4.33 10^6/uL (4.00-5.40); WHITE BLOOD COUNT 15.4 10^3/uL (4.0-10.0)
--- NOTE | 2020-06-10 18:08 | REP ---
INDICATION: ruq pain. COMPARISON: CT 08/15/2009 TECHNIQUE: Standard right upper quadrant sonographic evaluation performed FINDINGS: Sonogram evaluation of the right upper quadrant shows the liver with somewhat echogenic portal vein norris diffusely. Pattern may be suggestive of a "starry nina "which is a nonspecific finding. There is no intrahepatic biliary dilatation, focal hepatic mass, visible cyst or adjacent ascites. Gallbladder is adequately filled and without stone, sludge, wall thickening, mass or pericholecystic fluid. No sonographic Shannon sign defined. Common duct is 2 mm with no common duct dilatation or stone. Pancreas visualized was unremarkable. The right kidney shows no hydronephrosis there are some scattered areas of the hyperechoic tissue versus more extensive hypoechoic tissue. Some perinephric fluid may be suspected. IMPRESSION: 1. Nonspecific finding in the liver with the echogenic portal veins in a "starry nina" appearance. This may be seen in fasting liver, right heart failure, opportunistic infections, toxic shock syndrome, hepatitis and others. Please correlate clinically. 2. The right kidney with heterogeneous appearance areas of hyperechogenicity versus more extensive hypoechogenicity. There evidence suggesting possible pyelonephritis? Some perinephric fluid suspected. 3. Gallbladder, common duct and pancreas grossly unremarkable. <Electronically signed by Piter Monae > 06/10/20 [id number]
[2020-06-10 18:22] LABS: ALBUMIN 2.9 GM/DL (3.2-5.2); ALT/SGPT 17 U/L (12-78); BILIRUBIN,DIRECT 0.1 MG/DL (0.0-0.2); BILIRUBIN,TOTAL 0.4 MG/DL (0.2-1.0); LIPASE 92 U/L (73-393); TOTAL PROTEIN 7.3 GM/DL (6.4-8.2)
[2020-06-10 18:33] LABS: ATYPICAL LYMPH 2 % (0-5); LYMPHOCYTES 8 % (16-44); MONOCYTES 8 % (0-5); NEUTROPHILS 80 % (28-66); PLATELET ESTIMATE NORMAL (NORMAL)
[2020-06-10 18:41] LABS: RSV AMPLIFICATION NEGATIVE (NEGATIVE)
--- NOTE | 2020-06-10 19:22 | REPVR ---
PROCEDURE INFORMATION: Exam: CT Abdomen And Pelvis Without Contrast Exam date and time: 06/10/2020 6:45 PM Age: 24 years old Clinical indication: Abdominal pain; Localized; Right upper quadrant (ruq); Additional info: Ruq pain TECHNIQUE: Imaging protocol: Computed tomography of the abdomen and pelvis without contrast. Radiation optimization: All CT scans at this facility use at least one of these dose optimization techniques: automated exposure control; mA and/or kV adjustment per patient size (includes targeted exams where dose is matched to clinical indication); or iterative reconstruction. COMPARISON: GALLBLADDER US 06/10/2020 5:32 PM FINDINGS: Lungs: Bibasilar atelectasis, right greater than left. Liver: Normal. No mass. Gallbladder and bile ducts: Normal. No calcified stones. No ductal dilation. Pancreas: Normal. No ductal dilation. Spleen: Normal. No splenomegaly. Adrenal glands: Normal. No mass. Kidneys and ureters: There is slight enlargement of the right kidney relative to the left. Inflammatory changes in the right perinephric space. Findings may suggest pyelonephritis. Correlation with postcontrast study suggested if clinically desired. Mild inflammatory changes demonstrated in the perinephric space, findings which may indicate cystitis in to be correlated clinically. Stomach and bowel: Moderate fecal retention in the right and transverse colon consistent with constipation. Appendix: No evidence of appendicitis. Intraperitoneal space: Unremarkable. No free air. No significant fluid collection. Vasculature: Unremarkable. No abdominal aortic aneurysm. Lymph nodes: Unremarkable. No enlarged lymph nodes. Urinary bladder: Unremarkable as visualized. Reproductive: Unremarkable as visualized. Bones/joints: Unremarkable. No acute fracture. Soft tissues: Unremarkable. IMPRESSION: 1. There is slight enlargement of the right kidney relative to the left. Inflammatory changes in the right perinephric space. Findings may suggest pyelonephritis. Correlation with postcontrast study suggested if clinically desired. 2. Mild inflammatory changes demonstrated in the perinephric space, findings which may indicate cystitis in to be correlated clinically. 3. Moderate fecal retention in the right and transverse colon consistent with constipation. Electronically signed by: Juice Hewitt On 06/10/2020 19:22:05 PM
[2020-06-10] MEDS ORDERED: cefTRIAXone SOD 1 GM in D5W MINI-BAG PLUS 50 ML IV ONE (19:40)
[2020-06-10 19:48] LABS: HEPATITIS B SURFACE ANTIGEN NEGATIVE (NEGATIVE)
[2020-06-10 20:15] LABS: HEPATITIS B CORE ANTIBODY IGM NEGATIVE (NEGATIVE); HEPATITIS C VIRUS ABY INDEX < 0.0 INDEX (<0.8)
[2020-06-10 20:18] LABS: HEPATITIS A ANTIBODY IGM NEGATIVE (NEGATIVE)
[2020-06-10 22:45] VITALS: BP 116/82
[2020-06-10] MEDS ORDERED: CIPR-249 PO (22:51)
--- NOTE | 2020-06-11 14:32 | ED PDOC ---
Post-Departure Follow-Up certified letter sent to pt re formal report [facility]. pt needs fu. please obtain p cp name and fax. if no pcp refer to [facility] and fax Angelita Madrid MD Jun 11, 2020 14:32
== END 2020-06-10 23:03 | disposition home or self-care (01) ==
LOC: M ED 16:07
DX: N10 Acute pyelonephritis (principal); R11.2 Nausea with vomiting, unspecified; K59.00 Constipation, unspecified; R00.0 Tachycardia, unspecified; R51.9 Headache, unspecified; F33.9 Major depressive disorder, recurrent, unspecified; F41.9 Anxiety disorder, unspecified
CPT/HCPCS: 74176; 76705; 80047; 80076; 81001; 83690; 84702; 85025; 86705; 86709; 86803; 87088; 87186; 87340; 87631; 96361; 96365; 96375; 99285; J0696; J1885; J2405

== ENCOUNTER 2020-08-03 09:36 | Emergency (ER) | payer OTHER ==
[~2020-08-03] VITALS: Ht 162.6 cm; Wt 76.5 kg
[~2020-08-03 09:36] MED LIST changes: +CIPR-249 PO
[2020-08-03] MEDS ORDERED: HYDROMORPHONE HCL 0.5 MG/ 0.5 ML SYRINGE (J1170 PER 1) IV PRN (10:45)
[2020-08-03 11:02] LABS: BASO % 0.3 % (0.0-1.0); EOS # 0.1 10^3/uL (0.0-0.5); EOS % 0.7 % (0.0-3.0); HEMATOCRIT 35.9 % (36.0-47.0); HEMOGLOBIN 11.4 g/dl (12.0-15.5); LYMPH # 1.6 10^3/uL (1.5-5.0); MEAN CORPUSCULAR HEMOGLOBIN 26.1 pg (27.0-33.0); MEAN CORPUSCULAR HGB CONC 31.8 g/dl (32.0-36.5); MEAN CORPUSCULAR VOLUME 82.2 fl (80.0-96.0); MONO # 0.6 10^3/uL (0.0-0.8); MONO % 5.9 % (2.0-8.0); NEUTROPHILS # 8.3 10^3/uL (1.5-8.5); NEUTROPHILS % 77.8 % (36.0-66.0); PLATELET COUNT, AUTOMATED 475 10^3/uL (150-450); RED BLOOD COUNT 4.37 10^6/uL (4.00-5.40); WHITE BLOOD COUNT 10.6 10^3/uL (4.0-10.0)
--- NOTE | 2020-08-03 11:03 | REP ---
INDICATION: soft tissue abdominal wall for abscess. COMPARISON: None. TECHNIQUE: Limited transabdominal scanning anterior abdominal wall on the left. FINDINGS: Targeted sonography of the anterior abdominal wall in the area of interest to the left of midline demonstrates a heterogeneous of subcutaneous fluid collection measuring 4.7 x 1.3 x 3.1 cm. This is compatible with a small subcutaneous abscess. IMPRESSION: Small subcutaneous fluid collection as above compatible with abscess. <Electronically signed by Bharathi Avalos > 08/03/20 [id number]
[2020-08-03 11:20] VITALS: BP 130/73
[2020-08-03 11:33] LABS: ERYTHROCYTE SEDIMENTATION RATE 68 mm/hr (0-20)
[2020-08-03 12:58] LABS: HCG, SERUM QUALITATIVE NEGATIVE (NEGATIVE)
[2020-08-03 13:01] LABS: ALT/SGPT 25 U/L (12-78); BILIRUBIN,TOTAL 0.3 MG/DL (0.2-1.0); BLOOD UREA NITROGEN 8 MG/DL (7-18); CALCIUM LEVEL 8.4 MG/DL (8.5-10.1); CARBON DIOXIDE LEVEL 25 MEQ/L (21-32); CHLORIDE LEVEL 107 MEQ/L (98-107); CREATININE FOR GFR 0.61 MG/DL (0.55-1.30); GLOMERULAR FILTRATION RATE > 60.0 (>60); GLUCOSE, FASTING 91 MG/DL (70-100); POTASSIUM SERUM 4.3 MEQ/L (3.5-5.1); SODIUM LEVEL 139 MEQ/L (136-145); TOTAL PROTEIN 7.3 GM/DL (6.4-8.2)
[2020-08-03] MEDS ORDERED: BACTRIM 160MG/800MG DS TAB PO ONE (13:10)
[2020-08-03] MEDS ORDERED: KETOROLAC TROMETHAMINE 10 MG TAB PO ONE (13:10)
[2020-08-03] MEDS ORDERED: BACT800T5 PO (13:12)
[2020-08-03] MEDS ORDERED: KETO10TAB PO (13:12)
== END 2020-08-03 13:25 | disposition home or self-care (01) ==
LOC: M ED 09:36 → EEVIPCON 09:36 → M ED 13:25
DX: L02.211 Cutaneous abscess of abdominal wall (principal); B19.20 Unspecified viral hepatitis C without hepatic coma; F33.9 Major depressive disorder, recurrent, unspecified; F41.9 Anxiety disorder, unspecified; F19.10 Other psychoactive substance abuse, uncomplicated
CPT/HCPCS: 36415; 76705; 80053; 84703; 85025; 85652; 86140; 87040; 87070; 87077; 87186; 96374; 99284; J1170

== ENCOUNTER → 2021-07-27 | Outpatient (REF) | payer OTHER ==
[~2021-07-27] MED LIST changes: +BACT800T5 PO; +KETO10TAB PO
[2021-07-27 18:27] LABS: HCG, SERUM QUALITATIVE NEGATIVE (NEGATIVE)
[2021-07-27 18:34] LABS: ALT/SGPT 35 U/L (12-78); BLOOD UREA NITROGEN 13 MG/DL (7-18); CALCIUM LEVEL 9.5 MG/DL (8.5-10.1); CARBON DIOXIDE LEVEL 30 MEQ/L (21-32); CHLORIDE LEVEL 106 MEQ/L (98-107); CREATININE FOR GFR 0.63 MG/DL (0.55-1.30); GLOMERULAR FILTRATION RATE > 60.0 (>60); GLUCOSE, FASTING 87 MG/DL (70-100); POTASSIUM SERUM 5.2 MEQ/L (3.5-5.1); SODIUM LEVEL 140 MEQ/L (136-145)
[2021-07-27 18:35] LABS: ALBUMIN 3.6 GM/DL (3.2-5.2); BILIRUBIN,TOTAL 0.3 MG/DL (0.2-1.0); TOTAL PROTEIN 7.4 GM/DL (6.4-8.2)
[2021-07-27 18:49] LABS: HEPATITIS B SURFACE ANTIGEN NEGATIVE (NEGATIVE)
[2021-07-27 18:51] LABS: HEMATOCRIT 39.9 % (36.0-47.0); HEMOGLOBIN 12.6 g/dl (12.0-15.5); MEAN CORPUSCULAR HEMOGLOBIN 26.8 pg (27.0-33.0); MEAN CORPUSCULAR HGB CONC 31.6 g/dl (32.0-36.5); MEAN CORPUSCULAR VOLUME 84.9 fl (80.0-96.0); PLATELET COUNT, AUTOMATED 311 10^3/uL (150-450); WHITE BLOOD COUNT 6.9 10^3/uL (4.0-10.0)
[2021-07-27 19:17] LABS: HIV 1&2 SCREEN CENTAUR NEGATIVE (NEGATIVE)
[2021-07-27 19:25] LABS: HEPATITIS C VIRUS ABY INDEX > 11.0 INDEX (<0.8)
== END ==
LOC: M LABDRAWC 15:58
PROVIDERS: ATTEND Family Medicine
DX: F14.20 Cocaine dependence, uncomplicated (principal)

== ENCOUNTER → 2021-07-27 | Outpatient (REF) | payer OTHER ==
[2021-07-27 18:34] LABS: ALBUMIN 3.7 GM/DL (3.2-5.2); ALT/SGPT 32 U/L (12-78); BILIRUBIN,TOTAL 0.3 MG/DL (0.2-1.0); BLOOD UREA NITROGEN 13 MG/DL (7-18); CALCIUM LEVEL 9.4 MG/DL (8.5-10.1); CARBON DIOXIDE LEVEL 30 MEQ/L (21-32); CHLORIDE LEVEL 107 MEQ/L (98-107); CREATININE FOR GFR 0.61 MG/DL (0.55-1.30); GLOMERULAR FILTRATION RATE > 60.0 (>60); GLUCOSE, FASTING 86 MG/DL (70-100); POTASSIUM SERUM 4.8 MEQ/L (3.5-5.1); SODIUM LEVEL 141 MEQ/L (136-145); TOTAL PROTEIN 7.6 GM/DL (6.4-8.2)
[2021-07-27 18:36] LABS: HEPATITIS B SURFACE ANTIBODY NEGATIVE (POSITIVE)
[2021-07-27 18:46] LABS: HEPATITIS B SURFACE ANTIGEN NEGATIVE (NEGATIVE)
[2021-07-27 18:53] LABS: BASO % 0.4 % (0.0-1.0); EOS # 0.2 10^3/uL (0.0-0.5); EOS % 2.7 % (0.0-3.0); HEMATOCRIT 40.1 % (36.0-47.0); HEMOGLOBIN 12.5 g/dl (12.0-15.5); LYMPH # 2.2 10^3/uL (1.5-5.0); MEAN CORPUSCULAR HEMOGLOBIN 26.3 pg (27.0-33.0); MEAN CORPUSCULAR HGB CONC 31.2 g/dl (32.0-36.5); MEAN CORPUSCULAR VOLUME 84.4 fl (80.0-96.0); MONO # 0.4 10^3/uL (0.0-0.8); MONO % 5.4 % (2.0-8.0); NEUTROPHILS # 3.9 10^3/uL (1.5-8.5); NEUTROPHILS % 58.4 % (36.0-66.0); PLATELET COUNT, AUTOMATED 320 10^3/uL (150-450); RED BLOOD COUNT 4.75 10^6/uL (4.00-5.40); WHITE BLOOD COUNT 6.7 10^3/uL (4.0-10.0)
[2021-07-27 19:17] LABS: HIV 1&2 SCREEN CENTAUR NEGATIVE (NEGATIVE)
== END ==
LOC: M LABDRAWC 15:54
PROVIDERS: ATTEND Internal Medicine Infectious Disease
DX: B18.2 Chronic viral hepatitis C (principal)

== ENCOUNTER → 2025-01-29 | Outpatient (REF) | payer OTHER ==
[~2025-01-29] MED LIST changes: +AMOX875T2 PO; +METH-1177 PO
[2025-01-29 14:17] LABS: Trichomonas vaginalis (AMP) NOT DETECTED (NEGATIVE)
[2025-01-29 14:41] LABS: GC DNA AMPLIFICATION NEGATIVE (NEGATIVE)
== END ==
LOC: M SFHCWAGY 12:53
PROVIDERS: ATTEND Obstetrics & Gynecology
DX: Z34.80 Encounter for supervision of other normal pregnancy, unspecified trimester (principal)

== ENCOUNTER → 2025-01-31 | Outpatient (CLI) | payer OTHER ==
[2025-01-31 14:51] LABS: PLATELET COUNT, AUTOMATED 263 10^3/uL (150-450)
[2025-01-31 14:59] LABS: ESTIMATED AVERAGE GLUCOSE 88.0 MG/DL (60-110)
[2025-01-31 15:06] LABS: TOTAL PROTEIN,RANDOM URINE 16.3 MG/DL (0.0-14.0)
[2025-01-31 15:07] LABS: AMPHETAMINES URINE REFLEX NEGATIVE (NEGATIVE)
[2025-01-31 15:08] LABS: BARBITURATES URINE REFLEX NEGATIVE (NEGATIVE); BENZODIAZEPINES URINE REFLEX NEGATIVE (NEGATIVE); CANNABINOIDS URINE REFLEX NEGATIVE (NEGATIVE); COCAINE METABOLITE URINE REFLE NEGATIVE (NEGATIVE); OPIATES URINE REFLEX NEGATIVE (NEGATIVE); PHENCYCLIDINE URINE REFLEX NEGATIVE (NEGATIVE)
[2025-01-31 15:10] LABS: LDH LACTATE DEHYDROGENASE 155 U/L (120-246)
[2025-01-31 15:11] LABS: ALT/SGPT 13 U/L (7.0-40); AST/SGOT 15 U/L (<34); CREATININE FOR GFR 0.61 MG/DL (0.55-1.30); GLOMERULAR FILTRATION RATE > 90.0 (>60)
[2025-01-31 15:36] LABS: METHADONE URINE REFLEX PENDING CONFIRMATION (NEGATIVE)
[2025-01-31 15:37] LABS: HIV 1&2 SCREEN NEGATIVE (NEGATIVE)
[2025-01-31 15:51] LABS: HEPATITIS C VIRUS ABY INDEX > 11.00 INDEX (<0.8)
[2025-02-01 12:39] LABS: Trichomonas vaginalis (AMP) NOT DETECTED (NEGATIVE)
[2025-02-01 13:02] LABS: GC DNA AMPLIFICATION NEGATIVE (NEGATIVE)
[2025-02-03 03:02] LABS: HCV RNA QUANTITATION <15 NOT DETECTED IU/mL (NOT DETECTED); HCV RNA log10 <1.18 NOT DETECTED Log IU/mL (NOT DETECTED)
== END ==
LOC: M LAB 13:01
PROVIDERS: ATTEND Advanced Practice Midwife
DX: Z34.81 Encounter for supervision of other normal pregnancy, first trimester (principal)
CPT/HCPCS: 36415; 80307; 82247; 82950; 83036; 83615; 84156; 84450; 84460; 84550; 85027; 86762; 86780; 86803; 86850; 86900; 86901; 87088; 87186; 87389; 87522; 87661; 87810; 87850; G0480

== ENCOUNTER → 2025-02-14 | Outpatient (CLI) | payer OTHER | LOC: M WHC 15:05 | PROVIDERS: ATTEND Internal Medicine Addiction Medicine | DX: Z36.3 Encounter for antenatal screening for malformations (principal) ==